=== PATIENT | female | born 1955 ===

== ENCOUNTER 2018-06-18 10:03 | Outpatient (CLI) | payer OTHER | END 2018-06-18 10:06 | disposition home or self-care (01) | LOC: SONOGRAMA 10:03 | DX: E04.1 Nontoxic single thyroid nodule (principal) ==

== ENCOUNTER 2020-01-27 08:16 | Outpatient (CLI) | payer OTHER | END 2020-01-27 08:20 | disposition home or self-care (01) | LOC: SONOGRAMA 08:16 | PROVIDERS: ATTEND Pathology Anatomic Pathology & Clinical Pathology | DX: R22.2 Localized swelling, mass and lump, trunk (principal) ==

== ENCOUNTER 2023-05-29 09:25 | Outpatient (CLI) | payer OTHER | END 2023-05-29 09:29 | disposition home or self-care (01) | LOC: SONOGRAMA 09:25 | PROVIDERS: ATTEND Pathology Anatomic Pathology & Clinical Pathology | DX: D34 Benign neoplasm of thyroid gland (principal); E04.9 Nontoxic goiter, unspecified; E06.5 Other chronic thyroiditis ==